=== PATIENT | female | born 1965 | race Caucasian/White ===

== ENCOUNTER → 2023-06-04 | Outpatient (CLI) | payer OTHER ==
--- NOTE | 2023-06-05 07:28 | MR ---
EXAMINATION TYPE: MR shoulder RT wo con DATE OF EXAM: 06/04/2023 COMPARISON: None. HISTORY: Pain in Right shoulder with difficulty raising arm overhead since injured biceps one year ag o per patient. TECHNIQUE: Multiplanar, multisequence imaging of the right shoulder is performed without contrast. FINDINGS: Rotator Cuff: Increased signal in the infraspinatus and to a greater degree the supraspinatus tendon. Focal full-thickness tear involving anterior fibers distally is seen measuring 10 mm AP diameter sag ittal image 24 x 10 mm transversely coronal image 14. Acromioclavicular Joint: Mild to moderate capsular hypertrophy. Mild spurring from the distal clavicl e. Loss of the underlying fat plane noted sagittal image 17 for reference. Glenohumeral Joint: Small to moderate size joint effusion. No significant spurring. Labrum: The labrum appears grossly intact given limitation of non-arthrogram study. Biceps Tendon: The long head of biceps is in normal location within bicipital groove. Bone marrow signal: Some heterogeneity suggestive of red marrow reconversion. No suspicious focal inc reased T2 signal or edema. Other: No additional significant abnormality is appreciated. IMPRESSION: 1. Tendinosis of the infraspinatus and to greater degree the supraspinatus tendon with significant fu ll-thickness tear involving anterior three quarters fibers of the supraspinatus tendon. 2. AC joint arthropathy with suggestion of underlying impingement, correlate clinically.
== END | disposition home or self-care (01) ==
LOC: RADMRIMAIN 18:18
PROVIDERS: ATTEND Orthopaedic Surgery Sports Medicine
DX: M19.011 Primary osteoarthritis, right shoulder (principal); M67.813 Other specified disorders of tendon, right shoulder; M25.811 Other specified joint disorders, right shoulder; M75.121 Complete rotator cuff tear or rupture of right shoulder, not specified as traumatic; M75.41 Impingement syndrome of right shoulder; S46.811D Strain of other muscles, fascia and tendons at shoulder and upper arm level, right arm, subsequent encounter; X58.XXXD Exposure to other specified factors, subsequent encounter